=== PATIENT | female | born 1965 | race Caucasian/White ===

== ENCOUNTER 2024-07-30 21:48 | Inpatient (IN) | payer OTHER ==
[~2024-07-30] VITALS: Wt 68.0 kg
[2024-07-30] MEDS ORDERED: EZALLOR SPRINKL10 MG PO (22:16)
[2024-07-30] MEDS ORDERED: SYNTHROID50 MCG PO (22:16)
[2024-07-30] MEDS ORDERED: 0.9 % SODIUM CHLORIDE 1,000 ML IV ONE (23:00)
[2024-07-30] MEDS ORDERED: PANTOPRAZOLE SODIUM 40 MG/VIAL VIAL IV PUSH ONE (23:00)
[2024-07-30] MEDS ORDERED: KETOROLAC TROMETHAMINE 15 MG VIAL IV ONE (23:00)
[2024-07-30] MEDS ORDERED: SUCRALFATE 1 G TABLET PO ONE (23:00)
[2024-07-30] MEDS ORDERED: ONDANSETRON HCL 2 MG/ML VIAL IV ONE (23:00)
[2024-07-30] MEDS ORDERED: KETOROLAC TROMETHAMINE 60 MG VIAL IM ONE (23:20)
[2024-07-30] MEDS ORDERED: ONDANSETRON HCL 2 MG/ML VIAL ONE (23:21)
[2024-07-31 00:56] LABS: HEMATOCRIT 39.1 % (36.0-45.00); HEMOGLOBIN 13.2 g/dL (12.0-15.00); MEAN CELL VOLUME 84.4 fL (80.00-100.00); MEAN CORPUSCULAR HEMOGLOBIN 28.4 pg (27.00-32.0); MEAN CORPUSCULAR HGB CONC 33.7 g/dl (32.0-36.0); PLATELET COUNT 342 K/uL (150-450); RED BLOOD COUNT 4.63 M/uL (4.00-6.00); RED CELL DISTRIBUTION WIDTH 14.2 % (11.5-14.5)
[2024-07-31 01:17] LABS: ALBUMIN 4.4 gm/dL (3.4-5.0); BILIRUBIN TOTAL 0.4 mg/dL (0.3-1.2); CALCIUM 9.1 mg/dL (8.5-10.1); CREATININE SERUM 0.69 mg/dL (0.55-1.02); GFR 86.78; GLOBULINA 3.5 G/DL (2.4-3.5); POTASSIUM 3.85 mEq/L (3.5-5.1); TOTAL PROTEIN 7.9 gm/dL (6.4-8.2)
[2024-07-31 02:55] LABS: URINE APPEARANCE Clear; URINE BILIRRUBIN Negative (NEGATIVE); URINE BLOOD Negative; URINE COLOR Yellow; URINE GLUCOSE Negative (NEGATIVE); URINE LEUKOCYTE Negative; URINE NITRATE Negative; URINE PROTEIN Negative (NEGATIVE); URINE UROBILINOGEN 0.2 E.U./dl
[2024-07-31 02:58] LABS: URINE EPITHELIAL CELLS 14.5 uL (0.0-38.8); URINE RBC 37.1 uL (0.0-20.8); URINE WBC 19.6 uL (0.0-23.2)
[2024-07-31 03:00] LABS: URINE KETONE 40 (NEGATIVE)
[2024-07-31] MEDS ORDERED: PIPERACILLIN/TAZOBACTAM SODIUM 3.375 GM in 0.9 % SODIUM CHLORIDE 100 ML IV SCH (03:14)
[2024-07-31] MEDS ORDERED: MEPERIDINE HCL/PF 25 MG/ML VIAL IM ONE (03:15)
[2024-07-31] MEDS ORDERED: PIPERACILLIN/TAZOBACTAM SODIUM 3.375 GM VIAL IV ONE ×2 (03:52→13:02)
[2024-07-31] MEDS ORDERED: MORPHINE SULFATE 4 MG/ML CARTRIDGE IV ONE (05:45)
[2024-07-31 08:08] LABS: INR 1.05; PARTIAL THROMBOPLASTIN TIME 28.4 SECONDS (22.0-34.0); PROTHROMBIN TIME 11.4 SECONDS (9.0-11.5)
[2024-07-31] MEDS ORDERED: ONDANSETRON HCL 2 MG/ML VIAL IV PRN (09:30)
[2024-07-31] MEDS ORDERED: MORPHINE SULFATE 4 MG/ML CARTRIDGE IV PRN (10:00)
[2024-07-31] MEDS ORDERED: ONDANSETRON HCL 2 MG/ML VIAL ONE ×2 (10:09→14:31)
[2024-07-31] MEDS ORDERED: SUGAMMADEX SODIUM 200 MG/2 ML VIAL IV ONE (13:42)
[2024-07-31] MEDS ORDERED: MORPHINE SULFATE 4 MG/ML VIAL IV ONE (14:55)
[2024-07-31] MEDS ORDERED: SODIUM CL 0.9% 100 ML IV.SOLN IV ONE (15:57)
[2024-07-31 17:30] VITALS: BP 105/67; O2SAT 95
[2024-08-01 02:54] VITALS: BP 110/66; O2SAT 98
[2024-08-01 09:02] VITALS: BP 120/66; O2SAT 97
[2024-08-01] MEDS ORDERED: ACETAMINOPHEN 325 MG TABLET PO SCH (13:00)
[2024-08-01 16:10] VITALS: BP 110/68; O2SAT 93
[2024-08-02] VITALS (7 sets, daily range): BP systolic 105–127; BP diastolic 59–78; O2SAT 90–96
[2024-08-02] MEDS ORDERED: PIPERACILLIN/TAZOBACTAM SODIUM 3.375 GM VIAL IV ONE (08:09)
[2024-08-02] MEDS ORDERED: DOCUSATE SODIUM 100MG CAP PO SCH (09:00)
[2024-08-02 11:33] LABS: HEMOGLOBIN 12.7 g/dL (12.0-15.00); MEAN CELL VOLUME 84.9 fL (80.00-100.00); MEAN CORPUSCULAR HEMOGLOBIN 29.1 pg (27.00-32.0); MEAN CORPUSCULAR HGB CONC 34.3 g/dl (32.0-36.0); PLATELET COUNT 266 K/uL (150-450); RED BLOOD COUNT 4.36 M/uL (4.00-6.00); RED CELL DISTRIBUTION WIDTH 14.5 % (11.5-14.5)
[2024-08-02] MEDS ORDERED: SODIUM CL 0.9% 25 ML IV.SOLN. IV SCH (12:31)
[2024-08-02 12:47] LABS: ALBUMIN 3.2 gm/dL (3.4-5.0); BILIRUBIN TOTAL 0.83 mg/dL (0.3-1.2); CALCIUM 8.1 mg/dL (8.5-10.1); CREATININE SERUM 0.67 mg/dL (0.55-1.02); GFR 89.78; GLOBULINA 3.2 G/DL (2.4-3.5); POTASSIUM 3.78 mEq/L (3.5-5.1); TOTAL PROTEIN 6.4 gm/dL (6.4-8.2)
[2024-08-02] MEDS ORDERED: IPRATROPIUM BROMIDE 0.5 MG/2.5 ML AMPUL.NEB IH SCH (13:00)
[2024-08-02 13:15] LABS: URINE APPEARANCE Clear; URINE BILIRRUBIN Negative (NEGATIVE); URINE BLOOD NHT; URINE COLOR Yellow; URINE GLUCOSE Negative (NEGATIVE); URINE LEUKOCYTE Negative; URINE NITRATE Negative; URINE PROTEIN 30 (NEGATIVE); URINE UROBILINOGEN 0.2 E.U./dl
[2024-08-02 13:19] LABS: URINE EPITHELIAL CELLS 3.3 uL (0.0-38.8); URINE RBC 31.9 uL (0.0-20.8)
[2024-08-02 13:46] LABS: ABG PH 7.393 (7.35-7.45); ABG PO2 67.6 mmHg (80-100); ABG pCO2 41.2 mmHg (35-45); BASE EXCESS -0.4 mmol/l; BICARBONATE 24.5 mmol/l (23-25); Tco2 25.8 mmol/l
[2024-08-02 14:04] LABS: URINE KETONE 80 (NEGATIVE)
[2024-08-02] MEDS ORDERED: 0.9 % SODIUM CHLORIDE 1,000 ML IV SCH (14:15)
[2024-08-02 14:34] LABS: allen test SATISFACTORY; o2 21 %; puncture site RADIAL RIGHT
[2024-08-02] MEDS ORDERED: KETOROLAC TROMETHAMINE 30 MG VIAL IV SCH (17:00)
[2024-08-02] MEDS ORDERED: ONDANSETRON HCL 2 MG/ML VIAL IV STA (21:44)
[2024-08-03 01:17] VITALS: O2SAT 94
[2024-08-03 02:38] VITALS: BP 106/68; O2SAT 92
[2024-08-03 05:58] VITALS: O2SAT 94
[2024-08-03 09:05] VITALS: O2SAT 94
[2024-08-03 09:11] VITALS: BP 100/56; O2SAT 95
== END 2024-08-03 09:37 | disposition designated cancer center or children's hospital (05) | DRG 398 ==
LOC: ER 21:50 → MEDJ 07-31 10:50
PROVIDERS: General Practice; Surgery; ADMIT Internal Medicine; ATTEND Internal Medicine
PROC: 0DTJ0ZZ Resection of Appendix, Open Approach (ICD-10-PCS; principal; 2024-07-31 13:00)
PROC: BW24YZZ Computerized Tomography (CT Scan) of Chest and Abdomen using Other Contrast (ICD-10-PCS; 2024-08-02)
PROC: BW21YZZ Computerized Tomography (CT Scan) of Abdomen and Pelvis using Other Contrast (ICD-10-PCS; 2024-08-02)
PROC: 4A12X4Z Monitoring of Cardiac Electrical Activity, External Approach (ICD-10-PCS; 2024-08-02)
DX: K35.891 Other acute appendicitis without perforation, with gangrene (principal); K56.0 Paralytic ileus; E78.5 Hyperlipidemia, unspecified; E03.9 Hypothyroidism, unspecified
CPT/HCPCS: 71275